=== PATIENT | female | born 1955 | race African-American/Black ===

== ENCOUNTER 2016-11-07 14:58 | Inpatient (IN) | payer OTHER ==
[2016-11-07 16:50] VITALS: BMI 22.6
--- NOTE | 2016-11-07 17:48 | HP ---
CIWA Score - CIWA Score Nausea/Vomitin Muscle Tremors: 4-Moderate,w/Arms Extend Anxiety: 4-Mod. Anxious/Guarded Agitation: 4-Moderately Restless Paroxysmal Sweats: 3 Orientation: 0-Oriented Tacttile Disturbances: 1-Very Mild Itch/Numbness Auditory Disturbances: 0-None Visual Disturbances: 0-None Headache: 1-Very Mild CIWA-Ar Total Score: 20 Admission ROS S - HPI Chief Complaint: alcohol withdrawal sx Allergies/Adverse Reactions: Allergies Allergy/AdvReac Type Severity Reaction Status Date / Time Penicillins AdvReac Mild Difficulty Verified 11/07/16 17:36 Breathing History of Present Illness: 60 yo f with h/o chronic alcoholism last drink today PMHx dm, HTN,nicotine dependence not on any meds c/o alcohol withdrawawl sx when she does not drink. no h/o seizures, DTs, suicide attempts in past, no suicidal ideation at present , schizophrenia nomeds because of alcohol use. Exam Limitations: No Limitations - Ebola screening Have you traveled outside of the country in the last 21 days: No Have you had contact with anyone from an Ebola affected area: No Have you been sick,other than usual withdrawal symptoms: No Do you have a fever: No - Review of Systems Constitutional: Chills, Diaphoresis, Night Sweats, Unintentional Wgt. Loss EENT: reports: No Symptoms Reported Respiratory: reports: No Symptoms reported Cardiac: reports: No Symptoms Reported GI: reports: Nausea, Poor Appetite, Poor Fluid Intake, Vomiting (withdrawal), Indigestion, Abdominal cramping : reports: No Symptoms Reported Musculoskeletal: reports: Back Pain (chronic low back pain) Integumentary: reports: Flushing, Sweating Neuro: reports: Headache, Numbness, Paresthesia, Tingling, Tremors, Weakness, Dizziness Endocrine: reports: No Symptoms Reported Hematology: reports: No Symptoms Reported Psychiatric: reports: Judgement Intact, Orientated x3, Agitated, Anxious, Depressed Other Systems: Reviewed and Negative Patient History - Patient Medical History Hx Anemia: No Hx Asthma: No Hx Chronic Obstructive Pulmonary Disease (COPD): No Hx Cancer: No Hx Cardiac Disorders: No Hx Congestive Heart Failure: No Hx Hypertension: Yes (not currently on meds.) Hx Hypercholesterolemia: Yes (non compliance) Hx Pacemaker: No HX Cerebrovascular Accident: No Hx Seizures: No Hx Diabetes: Yes (borderline) Hx Gastrointestinal Disorders: No Hx Genitourinary Disorders: No Hx Sexually Transmitted Disorders: No Hx Renal Disease (ESRD): No Hx Human Immunodeficiency Virus (HIV): No (NEGATIVE ONE YR AGO) Hx Hepatitis C: No Hx Depression: Yes Hx Suicide Attempt: No Hx Schizophrenia: Yes - Patient Surgical History Past Surgical History: No Hx Neurologic Surgery: No Hx Cataract Extraction: No Hx Cardiac Surgery: No Hx Lung Surgery: No Hx Breast Surgery: No Hx Breast Biopsy: No Hx Abdominal Surgery: No Hx Appendectomy: No Hx Cholecystectomy: No Hx Genitourinary Surgery: No Hx Section: No Hx Orthopedic Surgery: No Hx Hysterectomy: No Anesthesia Reaction: No - PPD History Previous Implant?: Yes Documented Results: Negative w/o proof Implanted On Prior [facility] Admission?: Yes Date: 12/08/11 Results: 0 MM PPD to be Administered?: Yes - Reproductive History Patient is a Female of Child Bearing Age (11 -55 yrs old): No Patient : No - Smoking Cessation Smoking history: Current every day smoker Have you smoked in the past 12 months: Yes Aproximately how many cigarettes per day: 30 Hx Chewing Tobacco Use: No Initiated information on smoking cessation: Yes 'Breaking Loose' booklet given: 11/07/16 - Substance & Tx. History Hx Alcohol Use: Yes Hx Substance Use: No Substance Use Type: Alcohol Hx Substance Use Treatment: Yes ([facility] admission in past) - Substances Abused Alcohol Route: Oral Frequency: Daily Amount used: 1-2 pints vodka Age of first use: 12 Date of Last Use: 11/07/16 Family Disease History - Family Disease History Family Disease History: Other: Father (alcoholic), Mother (alcoholic) Admission Physical Exam S - Vital Signs Vital Signs: Vital Signs - 24 hr 11/07/16 16:45 Temperature 98.3 F Pulse Rate 115 H Respiratory 18 Rate Blood Pressure 101/73 - Physical General Appearance: Yes: Nourished, Disheveled, Mild Distress, Alcohol on Breath , Thin, Tremorous, Sweating, Anxious HEENTM: Yes: EOMI, Hearing grossly Normal, Normal ENT Inspection, Normocephalic , Normal Voice, Pharynx Normal Respiratory: Yes: Within Normal Limits, Chest Non-Tender, Lungs Clear, Normal Breath Sounds, No Respiratory Distress, No Accessory Muscle Use Neck: Yes: Within Normal Limits, No masses,lesions,Nodules, Supple, Trachea in good position Breast: Yes: Breast Exam Deferred Cardiology: Yes: Within Normal Limits, Regular Rhythm, Regular Rate, S1, S2 Abdominal: Yes: Normal Bowel Sounds, Non Tender, Flat, Soft, Increased Bowel Sounds Genitourinary: Yes: Within Normal Limits Back: Yes: Within Normal Limits, Normal Inspection Musculoskeletal: Yes: Within Normal Limits, full range of Motion, Gait Steady, Pelvis Stable Extremities: Yes: Normal Capillary Refill, Normal Inspection, Normal Range of Motion, Non-Tender, Tremors Neurological: Yes: 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 NML intact, Fully Oriented, Alert, Motor Strength 5/5, Normal Response, Depressed Affect Integumentary: Yes: Normal Color, Warm, Clammy, Diaphoresis Lymphatic: Yes: Within Normal Limits - Addiitonal Findings: alcohol withdrawal sx - Diagnostic (1) Cannabis dependence Current Visit: No Status: Active (2) Cocaine dependence Current Visit: No Status: Resolved (3) Essential hypertension Current Visit: No Status: Resolved (4) Hypercholesterolemia Current Visit: No Status: Resolved (5) Nicotine dependence Current Visit: Yes Status: Chronic (6) paraniod schizophrenia Current Visit: Yes Status: Chronic (7) Alcohol dependence with uncomplicated withdrawal Current Visit: Yes Status: Acute (8) Dehydration Current Visit: Yes Status: Acute Cleared for Admission [facility] - Detox or Rehab [facility] Level of Care: Medically Managed Detox Regimen/Protocol: Librium [facility] Breath Alcohol Content Breath Alcohol Content: 0.174 Urine Pregancy Test - Result Urine Test Results: Negative- NO Line Present Urine Drug Screen - Results Drug Screen Negative: Yes
[2016-11-07] MEDS ORDERED: LOPERAMIDE HCL 2 MG CAPSULE PO PRN (17:49)
[2016-11-07] MEDS ORDERED: NICOTINE POLACRILEX 2 MG GUM BC PRN (17:49)
[2016-11-07] MEDS ORDERED: MAG HYDROX/AL HYDROX/SIMETH 30 ML UNIT-DOSE CUP PO PRN (17:49)
[2016-11-07] MEDS ORDERED: hydrOXYzine PAMOATE 50 MG CAPSULE (FP) PO PRN (17:49)
[2016-11-07] MEDS ORDERED: MAGNESIUM CITRATE 300 ML BOTTLE PO PRN (17:49)
[2016-11-07] MEDS ORDERED: P-EPHED 60MG/TRIPROLIDI 2.5MG TABLET PO PRN (17:49)
[2016-11-07] MEDS ORDERED: guaiFENesin/D-METHORPHAN HB 10 ML UNIT-DOSE CUPS PO PRN (17:49)
[2016-11-07] MEDS ORDERED: MENTHOL/PHENOL 1 EACH UD MM PRN (17:49)
[2016-11-07] MEDS ORDERED: chlordiazePOXIDE HCL 25 MG CAPSULE PO PRN (17:49)
[2016-11-07] MEDS ORDERED: diphenhydrAMINE HCL 50 MG CAPSULE PO PRN (17:49)
[2016-11-07] MEDS ORDERED: IBUPROFEN 400 MG TABLET (FP) PO PRN (17:49)
[2016-11-07] MEDS ORDERED: MAGNESIUM HYDROX 2400MG/30ML ORAL SUSPENSION 30 ML CUP PO PRN (17:49)
[2016-11-07] MEDS: NICOTINE 14 MG/24 HOURS TOPICAL PATCH TD SCH (18:45)
[2016-11-07] MEDS: chlordiazePOXIDE HCL 25 MG CAPSULE PO SCH (22:09)
[2016-11-07] MEDS: THIAMINE HCL 100 MG TABLET (FP) PO SCH (22:09)
[2016-11-08] MEDS: chlordiazePOXIDE HCL 25 MG CAPSULE PO SCH ×4 (05:48→22:28)
[2016-11-08] MEDS: ACETAMINOPHEN 325 MG TABLET (FP) PO PRN ×2 (05:49→10:32)
[2016-11-08 09:44] LABS: MCH 39.9 pg (25.7-33.7); MCHC 33.6 g/dl (32.0-36.0); MEAN PLT VOLUME 10.4 fl (7.5-11.1); RDW 17.2 % (11.6-15.6)
[2016-11-08] MEDS: NICOTINE 14 MG/24 HOURS TOPICAL PATCH TD SCH (10:31)
[2016-11-08] MEDS: PRENATAL VITAMINS W/ FOLIC ACID TABLET (FP) PO SCH (10:31)
[2016-11-08 10:33] LABS: ALBUMIN 3.8 g/dl (3.4-5.0); ALK PHOS 151 U/L (45-117); ANION GAP 10 (8-16); BILIRUBIN,TOTAL 1.1 mg/dL (0.2-1.0); CO2 26 mmol/L (21-32); CREATININE 0.7 mg/dL (0.55-1.02); GLUCOSE,RANDOM 115 mg/dL (74-106); SGOT/AST 152 U/L (15-37); SGPT/ALT 41 U/L (12-78); TOT PROT 8.3 g/dl (6.4-8.2)
--- NOTE | 2016-11-08 11:34 | CONSULT ---
[facility] Psychiatric Consult - Data Date of interview: 11/08/16 Admission source: [facility] Identifying data: This is a 60 year old AA female, she is homeless and supported on SSI/SSD. Substance Abuse History: Patient reports age of her first drink 12, she drinks daily one pint of vodka, she smokes cigarettes 10 a day. Psychiatric History: Patient reports she was diagnosed with Schizophrenia, paranoid, several psychiatric hospitalizations in the past, states was under the care of at [facility] and was on HAldol Decanote IM medications, states she missed her appoinments and her shceduled injections, states last Haldol Injection was done 3 months ago, she hears voies telling her "bad things", she feels paranoid at times. No history of suicidal thoughts, willing to take Haldol pills. Physical/Sexual Abuse/Trauma History: Denies history of sexual, physical and verbal abuse. Additional Comment: Reports her parents were aaddictied to alcohol, reports her 4 children were killed and she has 2 alive. Mental Status Exam - Mental Status Exam Alert and Oriented to: Time, Place, Person Cognitive Function: Grossly Intact Patient Appearance: Unkempt, Disheveled Mood: Anxious Affect: Appropriate, Mood Congruent Patient Behavior: Appropriate, Cooperative Speech Pattern: Clear, Appropriate Voice Loudness: Normal Thought Process: Circumstantial Thought Disorder: Not Present, Paranoid Ideation Hallucinations: Auditory ("they telling me different things") Suicidal Ideation: None Homicidal Ideation: None Insight/Judgement: Fair Sleep: Fair Appetite: Fair Muscle strength/Tone: Normal Gait/Station: Normal Psychiatric Findings - Problem List ([place] 1, 2,3) (1) Alcohol dependence with uncomplicated withdrawal Current Visit: Yes Status: Acute (2) Nicotine dependence Current Visit: Yes Status: Chronic (3) paraniod schizophrenia Current Visit: Yes Status: Chronic - Initial Treatment Plan Initial Treatment Plan: will restart Haldol 5 mg po daily, continue detox. protocol.
[2016-11-08] MEDS ORDERED: PNEUMOC 13-VAL CONJ-DIP CRM/PF 0.5 ML DISP.SYRIN IM ONE (12:00)
[2016-11-08] MEDS ORDERED: PNEUMOCOCCAL 23 VACCINE 0.5 ML VIAL IM ONE (12:00)
[2016-11-08] MEDS: HALOPERIDOL 5 MG TABLET (FP) PO SCH (12:08)
--- NOTE | 2016-11-08 12:23 | PN ---
S CIWA - CIWA Score Nausea/Vomitin-No Nausea/No Vomiting Muscle Tremors: 4-Moderate,w/Arms Extend Anxiety: 3 Agitation: 4-Moderately Restless Paroxysmal Sweats: 3 Orientation: 0-Oriented Tacttile Disturbances: 0-None Auditory Disturbances: 0-None Visual Disturbances: 0-None Headache: 0-None Present CIWA-Ar Total Score: 14 [facility] Progress Note (SOAP) Subjective: shakes sweats restless tired Objective: 11/08/16 12:13 Vital Signs Temperature 98.4 F 11/08/16 09:42 Pulse Rate 106 H 11/08/16 09:42 Respiratory Rate 18 11/08/16 09:42 Blood Pressure 143/89 11/08/16 09:42 O2 Sat by Pulse Oximetry (%) Laboratory Tests 11/07/16 11/08/16 11/08/16 17:49 07:21 07:50 WBC 3.0 L D RBC 3.44 L Hgb 13.7 Hct 40.9 MCV 119.0 H MCH 39.9 H D MCHC 33.6 RDW 17.2 H D MPV 10.4 D Sodium Potassium Chloride Carbon Dioxide Anion Gap BUN Creatinine Creat Clearance w eGFR POC Glucometer 153 152 Random Glucose Calcium Total Bilirubin AST ALT Alkaline Phosphatase Total Protein Albumin 11/08/16 07:50 WBC RBC Hgb Hct MCV MCH MCHC RDW MPV Sodium 137 Potassium 3.2 L Chloride 101 Carbon Dioxide 26 Anion Gap 10 BUN 7 D Creatinine 0.7 Creat Clearance w eGFR > 60 POC Glucometer Random Glucose 115 H Calcium 9.0 Total Bilirubin 1.1 H D AST 152 H D ALT 41 D Alkaline Phosphatase 151 H Total Protein 8.3 H Albumin 3.8 low potassium 3.2; k-dur 20meq x 4 days labs CBC/CMP ordered aaox3 ambulating no acute distress ast elevated d/c tylenol Assessment: 11/08/16 12:26 withdrawal sx Plan: continue detox increase fluids f/u on pending labs
[2016-11-08 12:40] LABS: PLATELET COMMENT2 NO CLOTTING DETECTED; PLATELET ESTIMATE DECREASED (NORMAL)
[2016-11-08] MEDS: POTASSIUM CHLORIDE TABS 20 MEQ TABLET.ER (FP) PO SCH (12:42)
[2016-11-08] MEDS ORDERED: FERROUS SO4 325 MG TABLET (FP) PO SCH (17:30)
[2016-11-08] MEDS: THIAMINE HCL 100 MG TABLET (FP) PO SCH (22:28)
[2016-11-09] MEDS: chlordiazePOXIDE HCL 25 MG CAPSULE PO SCH ×3 (05:24→18:03)
[2016-11-09 10:48] LABS: BASOPHIL 0.4 % (0-2.0); MCHC 33.2 g/dl (32.0-36.0); MEAN CELL VOLUME 120.4 fl (80-96); MEAN PLT VOLUME 9.5 fl (7.5-11.1); NEUTROPHILS 43.8 % (42.8-82.8); RDW 17.1 % (11.6-15.6); WHITE BLOOD COUNT 3.4 K/mm3 (4.0-10.0)
[2016-11-09] MEDS: PRENATAL VITAMINS W/ FOLIC ACID TABLET (FP) PO SCH (10:52)
[2016-11-09] MEDS: HALOPERIDOL 5 MG TABLET (FP) PO SCH (10:53)
[2016-11-09] MEDS: POTASSIUM CHLORIDE TABS 20 MEQ TABLET.ER (FP) PO SCH (10:53)
[2016-11-09] MEDS: NICOTINE 14 MG/24 HOURS TOPICAL PATCH TD SCH (10:53)
[2016-11-09 10:59] LABS: ALBUMIN 3.4 g/dl (3.4-5.0); ALK PHOS 155 U/L (45-117); ANION GAP 7 (8-16); BILIRUBIN,TOTAL 0.9 mg/dL (0.2-1.0); CALCIUM 8.9 mg/dL (8.5-10.1); CO2 28 mmol/L (21-32); CREATININE 0.6 mg/dL (0.55-1.02); GLUCOSE,RANDOM 97 mg/dL (74-106); SGOT/AST 129 U/L (15-37); SGPT/ALT 43 U/L (12-78); TOT PROT 7.4 g/dl (6.4-8.2)
[2016-11-09 11:55] LABS: PLATELET COMMENT2 MOD PLT CLUMPING; PLATELET COMMENT3 FEW LARGE PLTS; PLATELET ESTIMATE MOD DECREASED (NORMAL)
[2016-11-09 11:56] LABS: ANISOCYTOSIS 3+; MACROCYTOSIS 3+; POIKILOCYTOSIS 2+; POLYCHROMASIA 1+
[2016-11-09] MEDS ORDERED: FLU VACCINE QUAD 60 MCG/0.5 ML (MDV 17-18) IM ONE ×2 (12:00→17:00)
--- NOTE | 2016-11-09 13:22 | PN ---
S CIWA - CIWA Score Nausea/Vomitin Muscle Tremors: 3 Anxiety: 2 Agitation: 2 Paroxysmal Sweats: 2 Orientation: 0-Oriented Tacttile Disturbances: 2-Mild Itch/Numbness/Burn Auditory Disturbances: 0-None Visual Disturbances: 1-Very Mild Sensitivity Headache: 2-Mild CIWA-Ar Total Score: 16 BHS Progress Note (SOAP) Subjective: interrupted sleep, back pain, abdominal cramps Objective: 11/09/16 13:21 Vital Signs - 8 hr 11/09/16 11/09/16 06:52 11:09 Temperature 99.5 F 98.2 F Pulse Rate 93 H 106 H Respiratory 20 18 Rate Blood Pressure 146/90 134/97 Laboratory Last Values WBC 3.4 K/mm3 (4.0-10.0) L 11/09/16 08:00 RBC 3.14 M/mm3 (3.60-5.2) L 11/09/16 08:00 Hgb 12.6 GM/dL (10.7-15.3) 11/09/16 08:00 Hct 37.8 % (32.4-45.2) 11/09/16 08:00 MCV 120.4 fl (80-96) H 11/09/16 08:00 MCH 40.0 pg (25.7-33.7) H 11/09/16 08:00 MCHC 33.2 g/dl (32.0-36.0) 11/09/16 08:00 RDW 17.1 % (11.6-15.6) H 11/09/16 08:00 Plt Count No Result Required. 11/09/16 08:00 MPV 9.5 fl (7.5-11.1) 11/09/16 08:00 Neutrophils % 43.8 % (42.8-82.8) D 11/09/16 08:00 Lymphocytes % 46.7 % (8-40) H D 11/09/16 08:00 Monocytes % 8.1 % (3.8-10.2) 11/09/16 08:00 Eosinophils % 1.0 % (0-4.5) 11/09/16 08:00 Basophils % 0.4 % (0-2.0) 11/09/16 08:00 Platelet Estimate Mod decreased (NORMAL) 11/09/16 08:00 Platelet Comment No clotting detected 11/09/16 08:00 Platelet Comment Mod plt clumping 11/09/16 08:00 Polychromasia 1+ 11/09/16 08:00 Poikilocytosis 2+ 11/09/16 08:00 Anisocytosis 3+ 11/09/16 08:00 Macrocytosis 3+ 11/09/16 08:00 Sodium 137 mmol/L (136-145) 11/09/16 08:00 Potassium 3.5 mmol/L (3.5-5.1) 11/09/16 08:00 Chloride 102 mmol/L (98-107) 11/09/16 08:00 Carbon Dioxide 28 mmol/L (21-32) 11/09/16 08:00 Anion Gap 7 (8-16) L 11/09/16 08:00 BUN 8 mg/dL (7-18) 11/09/16 08:00 Creatinine 0.6 mg/dL (0.55-1.02) 11/09/16 08:00 Creat Clearance w eGFR > 60 (>60) 11/09/16 08:00 POC Glucometer 152 UNITS (()) 11/08/16 07:21 Random Glucose 97 mg/dL (74-106) 11/09/16 08:00 Calcium 8.9 mg/dL (8.5-10.1) 11/09/16 08:00 Total Bilirubin 0.9 mg/dL (0.2-1.0) 11/09/16 08:00 AST 129 U/L (15-37) H 11/09/16 08:00 ALT 43 U/L (12-78) 11/09/16 08:00 Alkaline Phosphatase 155 U/L (45-117) H 11/09/16 08:00 Total Protein 7.4 g/dl (6.4-8.2) 11/09/16 08:00 Albumin 3.4 g/dl (3.4-5.0) 11/09/16 08:00 RPR Titer Nonreactive (NONREACTIVE) 11/08/16 07:50 labs noted, potassium level normalized Assessment: 11/09/16 13:21 withdrawal sx Plan: continue detox
[2016-11-09 17:43] LABS: URINE APPEARANCE SLCLOUDY; URINE BILIRUBIN NEGATIVE (NEGATIVE); URINE BLOOD NEGATIVE (NEGATIVE); URINE COLOR YELLOW; URINE GLUCOSE (UA) NEGATIVE (NEGATIVE); URINE KETONE NEGATIVE (NEGATIVE); URINE NITRITE NEGATIVE (NEGATIVE); URINE PROTEIN NEGATIVE (NEGATIVE); URINE UROBILINOGEN NEGATIVE mg/dL (0.2-1.0)
[2016-11-09 17:50] LABS: URINE LEUK ESTERASE 1+ (NEGATIVE)
[2016-11-09 18:03] LABS: URINE BACTERIA RARE /hpf (NONE SEEN); URINE MUCUS RARE; URINE RBC 1 /hpf (0-3); URINE WBC 2 /hpf (3-5)
[2016-11-09] MEDS: chlordiazePOXIDE 5 MG CAPSULE PO SCH (22:36)
[2016-11-09] MEDS: THIAMINE HCL 100 MG TABLET (FP) PO SCH (22:36)
[2016-11-10] MEDS: chlordiazePOXIDE 5 MG CAPSULE PO SCH ×3 (05:43→18:46)
[2016-11-10] MEDS: PRENATAL VITAMINS W/ FOLIC ACID TABLET (FP) PO SCH (10:28)
[2016-11-10] MEDS: NICOTINE 14 MG/24 HOURS TOPICAL PATCH TD SCH (10:28)
[2016-11-10] MEDS: POTASSIUM CHLORIDE TABS 20 MEQ TABLET.ER (FP) PO SCH (10:28)
[2016-11-10] MEDS: HALOPERIDOL 5 MG TABLET (FP) PO SCH (10:28)
--- NOTE | 2016-11-10 12:35 | PN ---
BHS Progress Note (SOAP) Subjective: Sweating,interrupted sleep,restless Objective: 11/10/16 12:33 Vital Signs - 8 hr 11/10/16 11/10/16 06:36 10:29 Temperature 97.7 F 98.1 F Pulse Rate 90 87 Respiratory 20 18 Rate Blood Pressure 146/84 142/96 Laboratory Last Values WBC 3.4 K/mm3 (4.0-10.0) L 11/09/16 08:00 RBC 3.14 M/mm3 (3.60-5.2) L 11/09/16 08:00 Hgb 12.6 GM/dL (10.7-15.3) 11/09/16 08:00 Hct 37.8 % (32.4-45.2) 11/09/16 08:00 MCV 120.4 fl (80-96) H 11/09/16 08:00 MCH 40.0 pg (25.7-33.7) H 11/09/16 08:00 MCHC 33.2 g/dl (32.0-36.0) 11/09/16 08:00 RDW 17.1 % (11.6-15.6) H 11/09/16 08:00 Plt Count No Result Required. 11/09/16 08:00 MPV 9.5 fl (7.5-11.1) 11/09/16 08:00 Neutrophils % 43.8 % (42.8-82.8) D 11/09/16 08:00 Lymphocytes % 46.7 % (8-40) H D 11/09/16 08:00 Monocytes % 8.1 % (3.8-10.2) 11/09/16 08:00 Eosinophils % 1.0 % (0-4.5) 11/09/16 08:00 Basophils % 0.4 % (0-2.0) 11/09/16 08:00 Platelet Estimate Mod decreased (NORMAL) 11/09/16 08:00 Platelet Comment No clotting detected 11/09/16 08:00 Platelet Comment Mod plt clumping 11/09/16 08:00 Polychromasia 1+ 11/09/16 08:00 Poikilocytosis 2+ 11/09/16 08:00 Anisocytosis 3+ 11/09/16 08:00 Macrocytosis 3+ 11/09/16 08:00 Sodium 137 mmol/L (136-145) 11/09/16 08:00 Potassium 3.5 mmol/L (3.5-5.1) 11/09/16 08:00 Chloride 102 mmol/L (98-107) 11/09/16 08:00 Carbon Dioxide 28 mmol/L (21-32) 11/09/16 08:00 Anion Gap 7 (8-16) L 11/09/16 08:00 BUN 8 mg/dL (7-18) 11/09/16 08:00 Creatinine 0.6 mg/dL (0.55-1.02) 11/09/16 08:00 Creat Clearance w eGFR > 60 (>60) 11/09/16 08:00 POC Glucometer 152 UNITS (()) 11/08/16 07:21 Random Glucose 97 mg/dL (74-106) 11/09/16 08:00 Calcium 8.9 mg/dL (8.5-10.1) 11/09/16 08:00 Total Bilirubin 0.9 mg/dL (0.2-1.0) 11/09/16 08:00 AST 129 U/L (15-37) H 11/09/16 08:00 ALT 43 U/L (12-78) 11/09/16 08:00 Alkaline Phosphatase 155 U/L (45-117) H 11/09/16 08:00 Total Protein 7.4 g/dl (6.4-8.2) 11/09/16 08:00 Albumin 3.4 g/dl (3.4-5.0) 11/09/16 08:00 Urine Color Yellow 11/09/16 17:20 Urine Appearance Slcloudy 11/09/16 17:20 Urine pH 6.0 (5.0-8.0) 11/09/16 17:20 Ur Specific [place] 1.010 (1.005-1.025) 11/09/16 17:20 Urine Protein Negative (NEGATIVE) 11/09/16 17:20 Urine Glucose (UA) Negative (NEGATIVE) 11/09/16 17:20 Urine Ketones Negative (NEGATIVE) 11/09/16 17:20 Urine Blood Negative (NEGATIVE) 11/09/16 17:20 Urine Nitrite Negative (NEGATIVE) 11/09/16 17:20 Urine Bilirubin Negative (NEGATIVE) 11/09/16 17:20 Urine Urobilinogen Negative mg/dL (0.2-1.0) 11/09/16 17:20 Urine RBC 1 /hpf (0-3) 11/09/16 17:20 Urine WBC 2 /hpf (3-5) 11/09/16 17:20 Ur Epithelial Cells Few /hpf (FEW) 11/09/16 17:20 Urine Bacteria Rare /hpf (NONE SEEN) 11/09/16 17:20 Urine Mucus Rare 11/09/16 17:20 RPR Titer Nonreactive (NONREACTIVE) 11/08/16 07:50 labs noted Assessment: 11/10/16 12:33 Withdrawal sx. Plan: Continue detox
[2016-11-10] MEDS ORDERED: amLODIPine BESYLATE 5 MG TABLET (FP) PO SCH (19:30)
[2016-11-10] MEDS ORDERED: cloNIDine HCL 0.1 MG TABLET PO ONE (21:03)
[2016-11-10] MEDS ORDERED: HYDROCHLOROTHIAZIDE 25 MG TABLET (FP) PO SCH (21:15)
[2016-11-10] MEDS: THIAMINE HCL 100 MG TABLET (FP) PO SCH (22:25)
[2016-11-10] MEDS: chlordiazePOXIDE HCL 10 MG CAPSULE PO SCH (22:25)
[2016-11-11] MEDS: chlordiazePOXIDE HCL 10 MG CAPSULE PO SCH (05:49)
[2016-11-11 06:18] VITALS: BP 118/76; PULSE 96; TEMP 97.9
--- NOTE | 2016-11-11 09:03 | DS ---
[facility] Detox Discharge Summary Admission Date: 11/07/16 Discharge Date: 11/11/16 - History Present History: Alcohol Dependence, Cannabis Dependence, Cocaine Dependence - Physical Exam Results Vital Signs: Vital Signs Temperature 97.9 F 11/11/16 06:17 Pulse Rate 96 H 11/11/16 06:17 Respiratory Rate 18 11/11/16 06:17 Blood Pressure 118/76 11/11/16 06:17 O2 Sat by Pulse Oximetry (%) - Treatment Hospital Course: Detox Protocol Followed, Detoxed Safely, Responded well, Discharged Condition Good, Rehab Referral Accepted - Medication Discharge Medications: Ambulatory Orders Haloperidol [Haldol -] 5 mg PO DAILY #30 tablet 11/08/16 - Diagnosis (1) Alcohol dependence with uncomplicated withdrawal Current Visit: Yes Status: Chronic (2) Nicotine dependence Current Visit: Yes Status: Chronic (3) Cannabis dependence Current Visit: Yes Status: Chronic - AMA Did Patient Leave Against Medical Advice: No (DSS social service)
--- NOTE | 2016-11-11 17:05 | EKG ---
Test Reason : Blood Pressure : / mmHG Vent. Rate : 088 BPM Atrial Rate : 088 BPM P-R Int : 154 ms QRS Dur : 076 ms QT Int : 406 ms P-R-T Axes : 047 022 030 degrees QTc Int : 491 ms NORMAL SINUS RHYTHM POSSIBLE LEFT ATRIAL ENLARGEMENT SEPTAL INFARCT , AGE UNDETERMINED ABNORMAL ECG NO PREVIOUS ECGS AVAILABLE Confirmed by AYAH ZIMMERMAN MD ([id number]) on 11/11/2016 5:04:55 PM Referred By: Rodriguez Rutledge Confirmed By:AYAH ZIMMERMAN MD
== END 2016-11-11 09:02 | disposition home or self-care (01) | DRG 897 ==
LOC: YASAS 14:58 → Y6N 17:52
PROVIDERS: ADMIT Internal Medicine; ATTEND Internal Medicine
PROC: HZ2ZZZZ Detoxification Services for Substance Abuse Treatment (ICD-10-PCS; principal; 2016-11-07)
DX: F10.230 Alcohol dependence with withdrawal, uncomplicated (principal); F20.0 Paranoid schizophrenia; F12.20 Cannabis dependence, uncomplicated; F17.210 Nicotine dependence, cigarettes, uncomplicated; I10 Essential (primary) hypertension; E11.9 Type 2 diabetes mellitus without complications; E78.00 Pure hypercholesterolemia, unspecified; Z91.14 Patient's other noncompliance with medication regimen
CPT/HCPCS: 36415; 80053; 81003; 81015; 85025; 85027; 86593; 90688; 90732; 93005; 93010; G0008; G0009